=== PATIENT | female | born 1955 | race Caucasian/White ===

== ENCOUNTER → 2020-08-19 14:11 | Outpatient (CLI) | payer OTHER, SELFPAY ==
--- NOTE | ~2020-08-19 | US_ITS ---
EXAMINATION: US transvaginal DATE: 08/19/2020 14:45 INDICATION: Postmenopausal bleeding. TECHNIQUE: Multiple transvaginal sonographic images of the pelvis were obtained. COMPARISON: None. FINDINGS: The uterus measures 7.6 x 3.5 x 5.1 cm. There is no free fluid in the pelvis. The endometrial complex measures 16 mm in thickness. There is a 9 mm mucosal fibroid. There is a 1.5 cm intramural fibroid. There is a 5.1 cm hyperechoic mass with shadowing in right adnexa. The left ovary is not visualized. IMPRESSION: 1. Thickened endometrial complex. The differential diagnosis includes endometrial hyperplasia, polyp, and carcinoma. Biopsy is recommended. 2. Small uterine fibroids. 3. 5.1 cm right adnexal mass, most likely a dermoid. Reviewed, dictated and finalized at location A. IMPRESSION: 1. Thickened endometrial complex. The differential diagnosis includes endometri al hyperplasia, polyp, and carcinoma. Biopsy is recommended. 2. Small uterine fibroids. 3. 5.1 cm right adnexal mass, most likely a dermoid.
== END ==
PROVIDERS: Visit Provider Obstetrics & Gynecology
DX: N95.0 Postmenopausal bleeding (principal); D25.9 Leiomyoma of uterus, unspecified
CPT/HCPCS: 76830

== ENCOUNTER → 2020-08-22 02:33 | Outpatient (CLI) | payer OTHER, SELFPAY ==
[2020-08-22 19:19] LABS: SARS-CoV-2 RNA PCR Negative
== END ==
PROVIDERS: Visit Provider Obstetrics & Gynecology
DX: Z01.812 Encounter for preprocedural laboratory examination (principal); Z20.822 Contact with and (suspected) exposure to COVID-19
CPT/HCPCS: C9803; U0003; U0005

== ENCOUNTER 2020-08-22 13:03 | Outpatient (CLI) | payer OTHER, SELFPAY ==
[2020-08-22 13:41] LABS: Hematocrit 50.2 % (37.0-47.0)
[2020-08-22 13:58] LABS: Anion Gap 2 mmol/L (8-16); Blood Urea Nitrogen 18 mg/dL (7-17); Carbon Dioxide 37 mmol/L (22-30); Chloride 99 mmol/L (98-107); Estimated Glomerular Filt Rate > 60; Glucose 215 mg/dL (65-105); Potassium 4.2 mmol/L (3.4-5.0); Sodium 138 mmol/L (137-145)
--- NOTE | 2020-08-22 15:00 | ECG_ITS ---
Measurements Intervals Distant Rate: 87 P: 2 CO: 146 QRS: 58 QRSD: 106 T: 38 QT: 367 QTc: 443 Interpretive Statements SINUS RHYTHM INCOMPLETE RIGHT BUNDLE BRANCH BLOCK NONSPECIFIC T-WAVE ABNORMALITY- ANTERIOR LEADS BASELINE ARTIFACT- III, AVL, AVF BORDERLINE ECG Electronically Signed On 08-22-2020 13:59:48 CDT by Nathan Sinclair D.O.
== END 2020-08-22 13:04 | disposition home or self-care (01) ==
LOC: ANHSURGERY 13:12
PROVIDERS: Anesthesiology; PCP Family Medicine; Visit Provider Obstetrics & Gynecology
DX: D64.9 Anemia, unspecified (principal); E11.9 Type 2 diabetes mellitus without complications; E78.5 Hyperlipidemia, unspecified; I10 Essential (primary) hypertension; Z01.818 Encounter for other preprocedural examination; I45.10 Unspecified right bundle-branch block
CPT/HCPCS: 36415; 80048; 85014; 85018; 93005

== ENCOUNTER 2020-08-24 14:05 | Outpatient (CLI) | payer OTHER, SELFPAY ==
[2020-08-27 19:39] LABS: CA-125 15 U/mL (<35)
== END 2020-08-24 14:06 | disposition home or self-care (01) ==
LOC: ANHLAB 14:09
PROVIDERS: PCP Family Medicine; Visit Provider Obstetrics & Gynecology
DX: D27.9 Benign neoplasm of unspecified ovary (principal)
CPT/HCPCS: 36415; 86304

== ENCOUNTER → 2020-10-04 02:21 | Outpatient (CLI) | payer OTHER, SELFPAY ==
[2020-10-05 14:39] LABS: SARS-CoV-2 RNA PCR Negative
--- NOTE | 2020-10-08 11:55 | W.PM.PROC2 ---
Procedure Note - Detailed Date of Procedure 10/08/20 Pre-op Diagnosis post menopausal bleeding and dermoid Post-op Diagnosis other (post menopausal bleeding and uterine fibroids.) Procedure Performed Diagnostic laparoscopy and hysteroscopy dilation and curettage Surgeon Jonel Gomez MD Findings uterine fibroids Description of Procedure the patient was taken to the operating room with IV running she was prepped and draped in a normal sterile fashion and placed in the lithotomy position. The blader was drained with a redrubber catheter. Attention was then turned to the abdomen. A 5mm incision was made in the umbilical fold. A Veress needle was introduced into the abdomen saline drop test was applied gas was introduced with opening pressure of -2 mmHg and the abdomen was insufflated with CO2 gas 2L. A trocar was introduced into the umbilical fold under visualization with the laparoscope. The uterine cavity was examined and a right 5mm. the adomen revealed a large fibroid on the uterus and bilateral normal ovaries with pelvic congestion. the laparoscopic was removed and the trocars were removed releasing air from the abdomen. 4-0 Vicryl suture was used to close the skin was closed with subcutaneous stitch. Attention was then turned to the vagina. bivalve speculum was placed. nulliparous cervix grasped with a tenaculum. 5cc of lidocaine injected bilaterally. uterus sounded to 6cm and dilated with ivan dilators. hysteroscope introduced with thickened enddometrium. The scope was removed and a curettage was performed. All insstruments removed and hemostasis assured. patient tolerated the procedure well and was taken to recovery room stable condition sponge lap and needle counts were correct x2 Estimated Blood Loss 20 Urine Output 50 Drains No Packing No Pathology yes Complications None Condition stable Disposition PACU
== END ==
PROVIDERS: PCP Family Medicine; Visit Provider Obstetrics & Gynecology
DX: Z01.812 Encounter for preprocedural laboratory examination (principal); Z20.822 Contact with and (suspected) exposure to COVID-19
CPT/HCPCS: C9803; U0003; U0005

== ENCOUNTER 2020-10-07 00:59 | Day surgery (SDC) | payer OTHER, SELFPAY ==
[2020-08-22 11:18] VITALS: BMI 34.4
--- NOTE | 2020-09-22 11:38 | PC.NURSE ---
Pt states no changes in health history or medications since initial interview. New Covid date/time and pre-op instructions reviewed with pt. Pt denies any questions at this time.
[2020-10-07] VITALS (8 sets, daily range): BP systolic 118–141; BP diastolic 62–79; PULSE 46–69; RESP 13–17; TEMP 36.2; O2SAT 96–100; BMI 32.5
--- NOTE | 2020-10-07 09:58 | PM.HPGS ---
History of Present Illness History of Present Illness Consent: Risks, benefits, and alternatives have been discussed and questions answered. Patient agrees to proceed with procedure. Chief complaint: post menopausal bleeding Narrative: Tiffanie Long is a 65 year old female presented to the office with postmenopausal bleeding. Patient underwent a pelvic ultrasound and it showed a 5 cm dermoid cyst. Review of Systems Review of Systems: All systems reviewed & are unremarkable except as noted in HPI and below PMFSH Past Medical History Medical History Dermoid cyst Postmenopausal bleeding Social History Social History Smoking status: Never smoker Alcohol intake: never Substance use: never Substance use type: does not use Living arrangements: with family Spiritual care concerns: No Meds Home Medications and Allergies Home Medications Medication Instructions Recorded Confirmed Type Lacto.acidophilus-Bif.animalis 1 cap PO HS 08/22/20 09/22/20 History [Probiotic] apple cider vinegar 900 mg PO DAILY 08/22/20 09/22/20 History ascorbic acid (vitamin C) [Vitamin 500 mg PO DAILY 08/22/20 09/22/20 History C] atorvastatin [Lipitor] 20 mg PO HS 08/22/20 09/22/20 History calcium carbonate [Calcium 600] 1,500 mg PO HS 08/22/20 09/22/20 History cetirizine [Zyrtec] 10 mg PO DAILY 08/22/20 09/22/20 History cholecalciferol (vitamin D3) 125 mcg PO HS 08/22/20 09/22/20 History [Vitamin D3] cinnamon bark [Cinnamon] 1,200 mg PO DAILY 08/22/20 09/22/20 History dulaglutide [Trulicity] 3 mg SUBCUT WEEKLY 08/22/20 09/22/20 History elderberry fruit [Elderberry] 200 mg PO DAILY 08/22/20 09/22/20 History empagliflozin [Jardiance] 25 mg PO DAILY 08/22/20 09/22/20 History ferrous sulfate 325 mg PO DAILY 08/22/20 09/22/20 History hydrochlorothiazide 25 mg PO DAILY 08/22/20 09/22/20 History losartan 100 mg PO HS 08/22/20 09/22/20 History metformin 500 mg PO DAILY 08/22/20 09/22/20 History metoprolol succinate [Toprol XL] 50 mg PO DAILY 08/22/20 09/22/20 History mirabegron [Myrbetriq] 50 mg PO DAILY 08/22/20 09/22/20 History multivitamin 1 tablet PO DAILY 08/22/20 09/22/20 History omeprazole [Prilosec] 40 mg PO DAILY PRN 08/22/20 09/22/20 History raloxifene [Evista] 60 mg PO DAILY 08/22/20 09/22/20 History zinc 50 mg PO DAILY 08/22/20 09/22/20 History Allergies Allergy/AdvReac Type Severity Reaction Status Date / Time Sulfa (Sulfonamide Allergy Intermediate Blister Verified 09/22/20 11:37 Antibiotics) Exam Const: Orientation/consciousness: patient oriented x3 Resp: Auscultation: clear to auscultation bilaterally Cardio: Rate: regular rate Rhythm: regular rhythm GI: GI Palp: Yes Soft to palpation : Speculum Exam - Vagina: normal appearance of the vagina Speculum Exam - Cervix: normal appearance of the cervix Bimanual exam- vagina & uterus: non-tender Assessment and Plan Assessment and plan (1) Dermoid cyst: Code(s): D36.9 - Benign neoplasm, unspecified site Status: Acute Assessment and Plan: Schedule for a laparoscopy with right ovarian cystectomy and hysteroscopy with dilation and curettage. Risk and benefits reviewed with patient in detail. (2) Postmenopausal bleeding: Code(s): N95.0 - Postmenopausal bleeding Status: Acute
[2020-10-07] MEDS: LACTATED RINGERS 1,000 ML 30 ML IV CONT ×2 (12:29→14:37)
[2020-10-07] MEDS: ACETAMINOPHEN 500 MG TABLET 1000 MG PO (12:32)
[2020-10-07] MEDS: KETOROLAC 15 MG/ML VIAL (*BKC) IV PUSH (12:32)
[2020-10-07 12:41] LABS: Glucose Point of Care 102 mg/dl (65-105)
--- NOTE | 2020-10-07 12:45 | WPDHPUPDATE1 ---
History and Physical Update Update Date/Time: 10/07/20 12:45 History and Physical has been reviewed, including an updated exam of the patient. There are NO changes in the patient's condition. Procedure planned is Laparoscopy with right oopherectomy and hysteroscopy with dilation and curettage. Risks, benefits, and alternatives have been discussed and questions answered. Patient agrees to proceed with procedure.
--- NOTE | 2020-10-07 12:49 | WPDANESEPPF ---
Anes - Initial Pre Proc Eval Procedure: Operation Date: 10/07/20 13:30 Proposed Procedures p Diagnostic Laparoscopy With Right Oophorectomy, Hysteroscopy, Dilation And Curettage - Jonel Gomez MD Date/Time: 10/07/20 12:49 Surgeon: Jonel Gomez MD Pre Op Diagnosis: post menopausal bleeding Patient Data Age: 65 Gender: F Height: 1.61 m Weight: 84.7 kg Last Vital Signs Temp 36.2 C L 10/07/20 12:42 Pulse 69 10/07/20 12:42 Resp 16 10/07/20 12:42 BP 140/73 10/07/20 12:42 Pulse Ox 99 10/07/20 12:42 Allergies Allergy/AdvReac Type Severity Reaction Status Date / Time Sulfa (Sulfonamide Allergy Intermediate Blister Verified 10/07/20 12:08 Antibiotics) Home Medications Medication Instructions Recorded Confirmed Type Lacto.acidophilus-Bif.animalis 1 cap PO HS 08/22/20 10/07/20 History [Probiotic] apple cider vinegar 900 mg PO DAILY 08/22/20 10/07/20 History ascorbic acid (vitamin C) [Vitamin 500 mg PO DAILY 08/22/20 10/07/20 History C] atorvastatin [Lipitor] 20 mg PO HS 08/22/20 10/07/20 History calcium carbonate [Calcium 600] 1,500 mg PO HS 08/22/20 10/07/20 History cetirizine [Zyrtec] 10 mg PO DAILY 08/22/20 10/07/20 History cholecalciferol (vitamin D3) 125 mcg PO HS 08/22/20 10/07/20 History [Vitamin D3] cinnamon bark [Cinnamon] 1,200 mg PO DAILY 08/22/20 10/07/20 History dulaglutide [Trulicity] 3 mg SUBCUT WEEKLY 08/22/20 10/07/20 History elderberry fruit [Elderberry] 200 mg PO DAILY 08/22/20 10/07/20 History empagliflozin [Jardiance] 25 mg PO DAILY 08/22/20 10/07/20 History ferrous sulfate 325 mg PO DAILY 08/22/20 10/07/20 History hydrochlorothiazide 25 mg PO DAILY 08/22/20 10/07/20 History losartan 100 mg PO HS 08/22/20 10/07/20 History metformin 500 mg PO DAILY 08/22/20 10/07/20 History metoprolol succinate [Toprol XL] 50 mg PO DAILY 08/22/20 10/07/20 History mirabegron [Myrbetriq] 50 mg PO DAILY 08/22/20 10/07/20 History multivitamin 1 tablet PO DAILY 08/22/20 10/07/20 History omeprazole [Prilosec] 40 mg PO DAILY PRN 08/22/20 10/07/20 History raloxifene [Evista] 60 mg PO DAILY 08/22/20 10/07/20 History zinc 50 mg PO DAILY 08/22/20 10/07/20 History Laboratory Tests 10/07/20 12:27 POC Capillary Glucose 102 mg/dl mg/dl (65-105) Patient hx anesthesia problems: post op nausea/vomiting Family hx anesthesia problems: none [facility] Past Medical History Medical History (Updated 10/07/20 @ 12:49 by Oz Mendes MD) Dermoid cyst HTN (hypertension) Hyperlipidemia Obesity WILLIAN (obstructive sleep apnea) Postmenopausal bleeding Social History Social History Smoking status: Never smoker Alcohol intake: never Substance use: never Substance use type: does not use Living arrangements: with family Spiritual care concerns: No Anes - Eval Final PreProcedure Day of Procedure 10/07/20 12:49 Patient weight: obese Heart: regular rate and rhythm Lungs: clear to auscultation Airway: Mallampati scale class II Neurological: alert and oriented Last oral intake: >/= 8 hours ASA classification: III Emergent: no Anesthetic plan: proceed Anesthesia type and monitoring: general ETT and standard monitoring Informed Consent: The patient's anesthetic plan and its attendant risks and benefits were discussed with the patient/family/POA. Questions were solicited and answers provided to the satisfaction of the patient/family/POA.
[2020-10-07 15:20] LABS: Glucose Point of Care 97 mg/dl (65-105)
--- NOTE | 2020-10-08 12:03 | OP_ITS ---
This report was moved to the correct visit, [id number] on 10/11/20. Original report was signed by Jonel Gomez MD on 10/08/20 1209. Procedure Note - Detailed Date of Procedure 10/08/20 Pre-op Diagnosis post menopausal bleeding and dermoid Post-op Diagnosis other (post menopausal bleeding and uterine fibroids.) Procedure Performed Diagnostic laparoscopy and hysteroscopy dilation and curettage Surgeon Jonel Gomez MD Findings uterine fibroids Description of Procedure the patient was taken to the operating room with IV running she was prepped and draped in a normal sterile fashion and placed in the lithotomy position. The blader was drained with a redrubber catheter. Attention was then turned to the abdomen. A 5mm incision was made in the umbilical fold. A Veress needle was introduced into the abdomen saline drop test was applied gas was introduced with opening pressure of -2 mmHg and the abdomen was insufflated with CO2 gas 2L. A trocar was introduced into the umbilical fold under visualization with the laparoscope. The uterine cavity was examined and a right 5mm. the adomen revealed a large fibroid on the uterus and bilateral normal ovaries with pelvic congestion. the laparoscopic was removed and the trocars were removed releasing air from the abdomen. 4-0 Vicryl suture was used to close the skin was closed with subcutaneous stitch. Attention was then turned to the vagina. bivalve speculum was placed. nulliparous cervix grasped with a tenaculum. 5cc of lidocaine injected bilaterally. uterus sounded to 6cm and dilated with ivan dilators. hysteroscope introduced with thickened enddometrium. The scope was removed and a curettage was performed. All insstruments removed and hemostasis assured. patient tolerated the procedure well and was taken to recovery room stable condition sponge lap and needle counts were correct x2 Estimated Blood Loss 20 Urine Output 50 Drains No Packing No Pathology yes Complications None Condition stable Disposition PACU This dictation may have been done utilizing a voice recognition system. Attempts have been made to correct errors. However, there may be uncorrected grammatical, spelling, and recognition errors present. Report Initialized date/time: Jonel Gomez MD 10/08/20 / 1203 Electronically signed by: Jonel Gomez MD 10/08/20 1202 [facility]
--- NOTE | 2020-11-01 11:06 | PM.OP ---
Procedure Note - Brief Procedure Note - Brief Pre-op diagnosis: post menopausal bleeding Surgeon: Jonel Gomez MDsurgery performed 10/07/20 seeoperative note
== END 2020-10-07 16:50 | disposition home or self-care (01) ==
PROVIDERS: PCP Family Medicine; Visit Provider Obstetrics & Gynecology
PROC: 0UDB8ZZ Extraction of Endometrium, Via Natural or Artificial Opening Endoscopic (ICD-10-PCS; CPT 58558; principal; 2020-10-07 13:30)
DX: N95.0 Postmenopausal bleeding (principal); D25.9 Leiomyoma of uterus, unspecified; N85.8 Other specified noninflammatory disorders of uterus; I10 Essential (primary) hypertension; E78.5 Hyperlipidemia, unspecified; G47.33 Obstructive sleep apnea (adult) (pediatric); Z79.84 Long term (current) use of oral hypoglycemic drugs; E66.9 Obesity, unspecified; Z68.32 Body mass index [BMI] 32.0-32.9, adult
CPT/HCPCS: 49320; 58558; 82948; 88305; A9270; J0330; J1100; J1200; J1885; J2250; J2405; J2704; J3010; J7030; J7120

== ENCOUNTER 2023-02-26 15:01 | Outpatient (CLI) | payer MEDICARE, OTHER, SELFPAY ==
[2023-02-26 15:28] LABS: Hematocrit 46.1 % (37.0-47.0); Hemoglobin 14.9 g/dL (12.0-15.0)
[2023-02-26 15:33] LABS: Anion Gap 6 mmol/L (8-16); Blood Urea Nitrogen 17 mg/dL (7-17); Calcium 9.3 mg/dL (8.4-10.2); Carbon Dioxide 33 mmol/L (22-30); Chloride 101 mmol/L (98-107); Estimated Glomerular Filt Rate > 60; Glucose 96 mg/dL (65-110); Sodium 140 mmol/L (137-145)
== END 2023-02-26 15:02 | disposition home or self-care (01) ==
LOC: ANHSURGERY 15:07
PROVIDERS: Anesthesiology; PCP Family Medicine; Visit Provider Obstetrics & Gynecology Gynecology
DX: Z01.818 Encounter for other preprocedural examination (principal); E11.9 Type 2 diabetes mellitus without complications; D64.9 Anemia, unspecified
CPT/HCPCS: 36415; 80048; 85014; 85018

== ENCOUNTER 2023-03-11 01:40 | Day surgery (SDC) | payer MEDICARE, OTHER, SELFPAY ==
[2023-02-25 11:46] VITALS: BMI 28.3
--- NOTE | 2023-02-25 11:50 | PC.NURSE ---
Report to the Outpatient Waiting Room, entrance under the green pavilion located off [facility], at time 9:45 on date 03/11/23. Planned Procedure Time: 11:45. Time changes happen often and if your time is changed the preop area will call you the afternoon before. - You and your visitor will be asked to self-screen and do not enter if you have any COVID symptoms. - A mask is optional within the hospital at this time. Patients may have clear liquids (water, carbonated beverages, clear teas, apple juice) until 3 hours prior to surgery with a maximum of 20 ounces. - No food from midnight until time of surgery Take the following medications with a SIP of water the morning of surgery: METOPROLOL DO NOT STOP ANY OF YOUR OTHER PRESCRIPTION MEDICATIONS PRIOR TO SURGERY ?EXCEPT THE FOLLOWING Medications to discontinue per physician: VITAMINS/SUPPLEMENTS Date to take last dose: 03/07/23 Please no make-up, nail mohawk, hairspray, perfume, deodorant, or body powder the day of surgery. No jewelry (including any body piercings) or valuables the day of surgery, leave them at home. Please take a shower or bath the night before, or the morning of, surgery with an antibacterial soap. Wear comfortable, loose fitting clothing. - Jewelry must be removed prior to entering the operating room. Rings and piercings that are not removed may be cut off. - The hospital will not accept responsibility for valuables. - Please leave all valuables, including medications, at home the day of surgery. If you are going home after surgery, a licensed crew car driver must drive you home. - NO public transportation without another adult if you receive anesthesia. - We recommend that an adult stay with you for 24 hours following discharge. - We also recommend that you do not drive, make important decision, drink alcoholic beverages, or take any drugs that were not prescribed by your health care provider for at least 24 hours after your discharge time. Follow any additional instructions given to you from your surgeon. If you or anyone in your household have experienced Covid symptoms in the past week, please notify your surgeon or the nurse liaison at the phone number below for possible testing. Telephone instructions given to PT Roque FENTON and asked if any additional questions and then verbalized understanding. Patient advised to call surgeon office or pre surgery nurse liaison [phone] if any additional questions.
--- NOTE | 2023-03-11 07:51 | WPDHPUPDATE1 ---
History and Physical Update Update Date/Time: 03/11/23 07:51 History and Physical has been reviewed, including an updated exam of the patient. There are NO changes in the patient's condition. Risks, benefits, and alternatives have been discussed and questions answered. Patient agrees to proceed with procedure.
--- NOTE | 2023-03-11 07:51 | PM.HPGS ---
History of Present Illness History of Present Illness Consent: Risks, benefits, and alternatives have been discussed and questions answered. Patient agrees to proceed with procedure. Chief complaint: Post Menopausal Bleeding Narrative: Tiffanie Long is a 67 year old female with postmenopausal bleeding since November. Patient with an abnormal Pap smear in November of 2022 showing atypical glandular cells. Colposcopy, endocervical curettings, and endometrial biopsy were performed and were all benign. Patient presented in January stating she had been bleeding most days since the end of November. It was recommended to proceed with D&C hysteroscopy. Risks of infection, bleeding, perforation, and possible pathology were all reviewed. Patient voices understanding and agrees to proceed. Review of Systems Review of Systems: not repeated day of surgery; patient states no changes in status PMFSH Past Medical History Medical History (Updated 03/11/23 @ 07:56 by Blossom Ku MD) HTN (hypertension) Hyperlipidemia Obesity WILLIAN (obstructive sleep apnea) Surgical History Surgical History (Updated 03/11/23 @ 07:56 by Blossom Ku MD) History of bilateral breast reduction surgery History of section, low transverse X2 History of foot surgery History of hysteroscopy 2020 for postmenopausal bleeding benign findings History of knee surgery History of laparoscopy 2020 only finding of uterine fibroids Social History Social History Smoking status: Never smoker Alcohol intake: never Substance use: never Substance use type: does not use Living arrangements: with family Spiritual care concerns: No Meds Home Medications and Allergies Home Medications Medication Instructions Recorded Confirmed Type Lactobacil.acidophilus-Bifido.animalis 1 cap PO HS 08/22/20 02/25/23 History 5 billion cell sprinkle capsule (Probiotic) apple cider vinegar 300 mg tablet 900 mg PO DAILY 08/22/20 02/25/23 History ascorbic acid (vitamin C) 500 mg 500 mg PO DAILY 08/22/20 02/25/23 History chewable tablet (Vitamin C) atorvastatin 20 mg tablet (Lipitor) 20 mg PO HS 08/22/20 02/25/23 History calcium carbonate 600 mg calcium 1,500 mg PO HS 08/22/20 02/25/23 History (1,500 mg) tablet (Calcium) cetirizine 10 mg tablet (Zyrtec) 10 mg PO DAILY 08/22/20 02/25/23 History cholecalciferol (vitamin D3) 125 125 mcg PO HS 08/22/20 02/25/23 History mcg (5,000 unit) tablet (Vitamin D3) dulaglutide 3 mg/0.5 mL 3 mg subcut WEEKLY 08/22/20 02/25/23 History subcutaneous pen injector (Trulicity) empagliflozin 25 mg tablet 25 mg PO DAILY 08/22/20 02/25/23 History (Jardiance) ferrous sulfate 325 mg (65 mg 325 mg PO DAILY 08/22/20 02/25/23 History iron) tablet hydrochlorothiazide 25 mg tablet 25 mg PO DAILY 08/22/20 02/25/23 History losartan 100 mg tablet 100 mg PO HS 08/22/20 02/25/23 History metformin 500 mg tablet 500 mg PO DAILY 08/22/20 02/25/23 History metoprolol succinate 50 mg 50 mg PO DAILY 08/22/20 02/25/23 History tablet,extended release 24 hr (Toprol XL) mirabegron 50 mg tablet,extended 50 mg PO DAILY 08/22/20 02/25/23 History release 24 hr (Myrbetriq) multivitamin 1 tablet PO DAILY 08/22/20 02/25/23 History omeprazole 40 mg capsule,delayed 40 mg PO DAILY PRN Heartburn 08/22/20 02/25/23 History release zinc 50 mg tablet 50 mg PO DAILY 08/22/20 02/25/23 History alendronate 70 mg tablet 70 mg PO WEEKLY 02/25/23 02/25/23 History fluticasone propionate 50 1 spray intranasal BID PRN Allergy 02/25/23 02/25/23 History mcg/actuation nasal Symptoms spray,suspension semaglutide 2 mg/dose (8 mg/3 mL) 3 mg subcut WEEKLY 02/25/23 02/25/23 History subcutaneous pen injector (Ozempic) Allergies Allergy/AdvReac Type Severity Reaction Status Date / Time Sulfa (Sulfonamide Allergy Intermediate Blister Verified 02/25/23 11:4
--- NOTE | 2023-03-11 07:57 | WPDHPUPDATE1 ---
History and Physical Update Update Date/Time: 03/11/23 07:57 History and Physical has been reviewed, including an updated exam of the patient. There are NO changes in the patient's condition. Risks, benefits, and alternatives have been discussed and questions answered. Patient agrees to proceed with procedure.
[2023-03-11 09:17] VITALS: BP 137/80; PULSE 82; RESP 16; TEMP 36.3; O2SAT 99
[2023-03-11] MEDS: ACETAMINOPHEN 500 MG TABLET 1000 MG PO (09:25)
--- NOTE | 2023-03-11 10:25 | WPDANESEPPF ---
Anes - Initial Pre Proc Eval Procedure: Operation Date: 03/11/23 11:00 Proposed Procedures p Hysteroscopy Dilation and Curettage - Blossom Ku MD Date/Time: 03/11/23 10:25 Surgeon: Blossom Ku MD Pre Op Diagnosis: Post Menopausal Bleeding Patient Data Age: 67 Gender: F Height: 1.6 m Weight: 78.5 kg Last Vital Signs Temp 36.3 C L 03/11/23 09:17 Pulse 82 03/11/23 09:17 Resp 16 03/11/23 09:17 BP 137/80 03/11/23 09:17 Pulse Ox 99 03/11/23 09:17 O2 Del Method Room Air 03/11/23 09:17 Allergies Allergy/AdvReac Type Severity Reaction Status Date / Time Sulfa (Sulfonamide Allergy Intermediate Blister Verified 03/11/23 09:09 Antibiotics) Home Medications Medication Instructions Recorded Confirmed Type Lactobacil.acidophilus-Bifido.animalis 1 cap PO HS 08/22/20 02/25/23 History 5 billion cell sprinkle capsule (Probiotic) apple cider vinegar 300 mg tablet 900 mg PO DAILY 08/22/20 02/25/23 History ascorbic acid (vitamin C) 500 mg 500 mg PO DAILY 08/22/20 02/25/23 History chewable tablet (Vitamin C) atorvastatin 20 mg tablet (Lipitor) 20 mg PO HS 08/22/20 02/25/23 History calcium carbonate 600 mg calcium 1,500 mg PO HS 08/22/20 02/25/23 History (1,500 mg) tablet (Calcium) cetirizine 10 mg tablet (Zyrtec) 10 mg PO DAILY 08/22/20 02/25/23 History cholecalciferol (vitamin D3) 125 125 mcg PO HS 08/22/20 02/25/23 History mcg (5,000 unit) tablet (Vitamin D3) dulaglutide 3 mg/0.5 mL 3 mg subcut WEEKLY 08/22/20 02/25/23 History subcutaneous pen injector (Trulicity) empagliflozin 25 mg tablet 25 mg PO DAILY 08/22/20 02/25/23 History (Jardiance) ferrous sulfate 325 mg (65 mg 325 mg PO DAILY 08/22/20 02/25/23 History iron) tablet hydrochlorothiazide 25 mg tablet 25 mg PO DAILY 08/22/20 02/25/23 History losartan 100 mg tablet 100 mg PO HS 08/22/20 02/25/23 History metformin 500 mg tablet 500 mg PO DAILY 08/22/20 02/25/23 History metoprolol succinate 50 mg 50 mg PO DAILY 08/22/20 02/25/23 History tablet,extended release 24 hr (Toprol XL) mirabegron 50 mg tablet,extended 50 mg PO DAILY 08/22/20 02/25/23 History release 24 hr (Myrbetriq) multivitamin 1 tablet PO DAILY 08/22/20 02/25/23 History omeprazole 40 mg capsule,delayed 40 mg PO DAILY PRN Heartburn 08/22/20 02/25/23 History release zinc 50 mg tablet 50 mg PO DAILY 08/22/20 02/25/23 History alendronate 70 mg tablet 70 mg PO WEEKLY 02/25/23 02/25/23 History fluticasone propionate 50 1 spray intranasal BID PRN Allergy 02/25/23 02/25/23 History mcg/actuation nasal Symptoms spray,suspension semaglutide 2 mg/dose (8 mg/3 mL) 3 mg subcut WEEKLY 02/25/23 02/25/23 History subcutaneous pen injector (Ozempic) Patient hx anesthesia problems: post op nausea/vomiting Family hx anesthesia problems: none Results Review: All pre-operative results and documents have been reviewed as part of the pre-operative evaluation. [facility] Past Medical History Medical History (Updated 03/11/23 @ 10:26 by Job Macedo DO) Diabetes type 2, controlled GERD (gastroesophageal reflux disease) HTN (hypertension) Hyperlipidemia Obesity WILLIAN (obstructive sleep apnea) Surgical History Surgical History (Updated 03/11/23 @ 07:56 by Blossom Ku MD) History of bilateral breast reduction surgery History of section, low transverse X2 History of foot surgery History of hysteroscopy 2020 for postmenopausal bleeding benign findings History of knee surgery History of laparoscopy 2020 only finding of uterine fibroids Social History Social History Smoking status: Never smoker Alcohol intake: never Substance use: never Substance use type: does not use Living arrangements: with family Spiritual care concerns: No Anes - Eval Final PreProcedure Day of Procedure 03/11/23 10:25 Patient weight:
[2023-03-11] MEDS: LACTATED RINGERS 1,000 ML 30 ML IV CONT ×2 (10:36→12:11)
[2023-03-11 10:37] LABS: Glucose Point of Care 109 mg/dl (65-105)
[2023-03-11] MEDS: FERRIC SUBSULFATE 8 ML SOLUTION WITH APPLICATOR TOPICAL (11:40)
[2023-03-11 11:50] VITALS: BP 94/69; PULSE 71; RESP 16; O2SAT 98
--- NOTE | 2023-03-11 11:50 | W.PM.PROC2 ---
Procedure Note - Detailed Date of Procedure 03/11/23 Pre-op Diagnosis Post Menopausal Bleeding Post-op Diagnosis Same Procedure Performed D&C hysteroscopy Surgeon Blossom Ku MD Anesthesia MAC Findings Very small nulliparous cervix. Uterus sounds to 5cm. Extensive scarring consistent with the appearance of a prior endometrial ablation. No obvious lesions. Cervix with multiple outpouchings consistent with adenomyosis. Description of Procedure The patient is taken to the operating room and placed under anesthesia in the dorsal lithotomy position. She was prepped and draped in the usual sterile fashion. [place] speculum was placed in the vagina and the cervix is grasped on the anterior lip with a tenaculum. Uterus is sounded to 5cm. Diagnostic hysteroscope was placed and immediately the cervix is noted to have multiple outpouchings. The apex of the cervix is very scarred. Increased pressure with the hysteroscope fluid did have a slight dilatation of the upper area. The 00 sharp curette was used to curette was started uterine cry was noted in all areas. Minimal material was obtained consistent with the atrophic appearance. As I was not certain I was in the endometrial cavity, the os Finders were used to attempt to enter the endometrial cavity. This was not visibly successful. Review of the prior operative note and pictures reveals a very similar visualization. The tenaculum pulled through x2 anteriorly so therefore was moved to the posterior portion. The tenaculum was removed and Monsel's applied to the tenaculum sites. Good hemostasis is noted. All instruments are removed. Sponge, needle, and instrument counts are correct per the OR staff. Estimated Blood Loss 5 Drains No Packing No Pathology Yes (Endometrial curettings) Complications Other complications (Uncertain as to entering the endometrial cavity) Condition Stable Disposition PACU
[2023-03-11 12:18] LABS: Glucose Point of Care 95 mg/dl (65-105)
[2023-03-11 12:20] VITALS: BP 105/60; PULSE 66
[2023-03-11] MEDS: oxyCODONE HCL (*CRX) 5 MG TAB IR PO (12:37)
[2023-03-11 12:50] VITALS: BP 151/69; PULSE 68; RESP 16
[2023-03-11 13:20] VITALS: BP 134/80; PULSE 71; RESP 18
== END 2023-03-11 13:25 | disposition home or self-care (01) ==
PROVIDERS: PCP Family Medicine; Visit Provider Obstetrics & Gynecology Gynecology
PROC: 0U5B8ZZ Destruction of Endometrium, Via Natural or Artificial Opening Endoscopic (ICD-10-PCS; CPT 58563; principal; 2023-03-11 11:00)
DX: N95.0 Postmenopausal bleeding (principal); I10 Essential (primary) hypertension; E78.5 Hyperlipidemia, unspecified; E11.9 Type 2 diabetes mellitus without complications; K21.9 Gastro-esophageal reflux disease without esophagitis; G47.33 Obstructive sleep apnea (adult) (pediatric); E66.9 Obesity, unspecified; Z68.30 Body mass index [BMI] 30.0-30.9, adult; Z79.84 Long term (current) use of oral hypoglycemic drugs; Z79.85 Long-term (current) use of injectable non-insulin antidiabetic drugs
CPT/HCPCS: 58558; 82948; 88305; A9270; J1100; J1885; J2250; J2405; J2704; J3010; J7120

== ENCOUNTER → 2023-05-15 15:17 | Outpatient (CLI) | payer MEDICARE, OTHER, SELFPAY ==
--- NOTE | ~2023-05-15 | US_ITS ---
EXAMINATION: US transvaginal DATE: 05/15/2023 15:43 INDICATION: Postmenopausal bleeding. TECHNIQUE: Multiple transvaginal sonographic images of the pelvis were obtained. COMPARISON: ultrasound 08/19/20 FINDINGS: The uterus measures 7.4 x 4.2 x 4.7 cm. There is no free fluid in the pelvis. The endometrial comple x measures 2.2 cm in thickness. There is a 5.8 cm hyperechoic shadowing mass in the right adnexa. The left ovary is not visualized. IMPRESSION: 1. Thickened endometrial complex. The differential diagnosis includes endometrial hyperplasia, polyp, and carcinoma. Biopsy is recommended. 2. 5.8 cm right adnexal mass that measured 5.1 cm on 08/19/2020, most likely a dermoid. Reviewed, dictated and finalized at location A. [employer] IMPRESSION: 1. Thickened endometrial complex. The differential diagnosis includes endometri al hyperplasia, polyp, and carcinoma. Biopsy is recommended. 2. 5.8 cm right adnexal mass that measured 5.1 cm on 08/19/2020, most likely a de rmoid.
== END ==
PROVIDERS: PCP Nurse Practitioner; Visit Provider Nurse Practitioner
DX: N95.0 Postmenopausal bleeding (principal)
CPT/HCPCS: 76830